=== PATIENT | female | born 1945 | race Asian ===

== ENCOUNTER 2019-07-06 13:29 | Emergency (ER) | payer OTHER ==
[~2019-07-06] VITALS: Ht 157.5 cm; Wt 58.1 kg
[2019-07-06 13:29] VITALS: BP 140/80
--- NOTE | 2019-07-06 13:29 | NUR ---
ED Nurse Note: PT BROUGHT IN BY RA [id number] FOR GROUND LEVEL FALL. LACERATION REPORTED ON THE FRONTAL RIGHT HEAD. PT DENIES LOC
[2019-07-06] MEDS ORDERED: Tetanus/Diptheria/Pertussis IM ONE (13:45)
[2019-07-06] MEDS ORDERED: oxyCODONE HCL/Acetaminophen 5/325mg ORAL ONE (13:45)
--- NOTE | 2019-07-06 13:52 | NUR ---
ED Nurse Note: pt went to ct
--- NOTE | 2019-07-06 14:10 | NUR ---
ED Nurse Note: pt back from ct
--- NOTE | 2019-07-06 14:21 | NUR ---
ED Nurse Note: went to x ray
--- NOTE | 2019-07-06 14:37 | NUR ---
ED Nurse Note: back from x ray
--- NOTE | 2019-07-06 14:55 | Diagnostic Imaging Report ---
Indications: Facial trauma secondary to fall Technique: Spiral acquisitions obtained through the facial bones. No IV contrast utilized. Multiplanar reconstructions were generated.Total dose length product 574 mGycm. CTDIvol(s) 25 mGy. Dose reduction achieved using automated exposure control Comparison: none Findings: A small focus of gas is seen in this soft tissues of the right supraorbital region on the highest cut, presumably indicating penetrating trauma to this area. No significant contusion, however. No fractures. No worrisome sinus opacification demonstrated. The nasal septum is midline. The sinuses are clear. The mastoids are clear. The mandible is intact. The dentition is intact. There are degenerative changes of the cervical spine. The optic globes are intact. Retroseptal orbits are unremarkable. The salivary glands are unremarkable. No cervical mass or adenopathy demonstrated. The upper aerodigestive tract is unremarkable. Impression: Soft tissue gas within the right supraorbital region seen only on the highest cuts, presumably indicating a laceration in this area. No acute bony trauma The CT scanner at [facility] is accredited by the [employer] and the scans are performed using protocols designed to limit radiation exposure to as low as reasonably achievable to attain images of sufficient resolution adequate for diagnostic evaluation.
[2019-07-06] MEDS ORDERED: Bacitracin Oint UD TOPIC ONE ×2 (15:02→15:15)
--- NOTE | 2019-07-06 15:08 | Diagnostic Imaging Report ---
Indications: Head trauma, pain, status post fall Technique: Spiral acquisitions obtained through the brain. Angled axial and coronal 5 x 5 mm slices were reconstructed. Total dose length product 1426 mGycm. CTDI vol(s) 62 mGy. Dose reduction achieved using automated exposure control Comparison: None. Findings: There is a small amount of soft tissue gas in the right supraorbital scalp with associated slight swelling. No underlying calvarial fracture. No acute intracranial hemorrhage or edema. No mass effect nor midline shift. Normal ortega-white differentiation. Normal size ventricles and extra axial CSF spaces. Focal dural calcification seen on the right tentorium. Impression: Evidence of right supraorbital scalp soft tissue injury with laceration Negative for acute intracranial bleed or mass effect The CT scanner at [facility] is accredited by the [employer] and the scans are performed using protocols designed to limit radiation exposure to as low as reasonably achievable to attain images of sufficient resolution adequate for diagnostic evaluation.
--- NOTE | 2019-07-06 15:33 | Emergency Room Report ---
History of Present Illness General Chief Complaint: Multiple Trauma/Fall Source: Patient, EMS Present Illness HPI 73-year-old female not on blood thinners presents with mechanical fall trip and fall patient was walking she was doing her cell phone and fell on the pavement hit her head, no LOC no nausea no vomiting no chest pain or shortness of breath no prior symptoms she endorses some head pain no aggravating leaving factors severity is moderate, intermittent, patient presents for evaluation symptoms occurred just prior to arrival Allergies: Coded Allergies: No Known Allergies (Unverified , 07/06/19) Patient History Past Medical History: see triage record Reviewed Nursing Documentation: PMH: Agreed; PSxH: Agreed Nursing Documentation-PMH Past Medical History: No History, Except For Hx Hypertension: Yes - KNEE INJURY Review of Systems All Other Systems: negative except mentioned in HPI Physical Exam Vital Signs Date Time Temp Pulse Resp B/P (MAP) Pulse Ox O2 Delivery O2 Flow Rate FiO2 07/06/19 13:21 98.8 88 16 142/84 (103) 98 07/06/19 13:29 Room Air Sp02 EP Interpretation: reviewed, normal General Appearance: well appearing, no apparent distress, alert Head: normocephalic, other - Stellate lesion right forehead 4 cm Eyes: bilateral eye PERRL, bilateral eye EOMI ENT: uvula midline, moist mucus membranes Neck: supple, thyroid normal, no bony tend, supple/symm/no masses Respiratory: lungs clear, no respiratory distress, no retraction, no accessory muscle use Cardiovascular #1: normal peripheral pulses, regular rate, rhythm, no edema, no gallop, no murmur Gastrointestinal: non tender, soft, no guarding, no rebound Musculoskeletal: normal inspection Neurologic: alert, oriented x3 Psychiatric: mood/affect normal Skin: no rash, warm/dry Procedures Laceration/Wound Repair Laceration/Wound Repair : Consent: Verbal Wound Location: face Wound's Depth, Shape: superficial Wound Length (cm): 4 Wound Explored: clean Irrigated w/ Saline (ccs): 250 Betadine Prep?: Yes Anesthesia: Lidocaine w/ Epi Volume Anesthetic (ccs): 10 Wound Repaired With: sutures Suture Size/Type: 5:0 Number of Sutures: 4 Patient Tolerated: Well Complications: None Medical Decision Making Diagnostic Impression: Primary Impression: Fall Qualified Codes: W19.XXXA - Unspecified fall, initial encounter Additional Impressions: Closed head injury Qualified Codes: S09.90XA - Unspecified injury of head, initial encounter Scalp laceration Qualified Codes: S01.01XA - Laceration without foreign body of scalp, initial encounter ER Course 73-year-old female presents with mechanical fall, with laceration to the right forehead, CT head and CT face are negative for acute fracture, no evidence of intracranial hemorrhage, patient was given a Tdap, laceration repair disposition home with return precautions CT/MRI/US Diagnostic Results CT/MRI/US Diagnostic Results : Impression Procedure: CT Facial Bones no Contrast Indications: Facial trauma secondary to fall Technique: Spiral acquisitions obtained through the facial bones. No IV contrast utilized. Multiplanar reconstructions were generated.Total dose length product 574 mGycm. CTDIvol(s) 25 mGy. Dose reduction achieved using automated exposure control Comparison: none Findings: A small focus of gas is seen in this soft tissues of the right supraorbital region on the highest cut, presumably indicating penetrating trauma to this area. No significant contusion, however. No fractures. No worrisome sinus opacification demonstrated. The nasal septum is midline. The sinuses are clear. The mastoids are clear. The mandible is intact. The dentition is intact. There are degenerative changes of the cervical spine. The optic globes are intact. Retroseptal orbits are unremarkable. The salivary glands are unremarkable. No cervical mass or adenopathy demonstrated. The upper aerodigestive tract is unremarkable. Impression: Soft tissue gas within the right supraorbital region seen only on the highest cuts, presumably indicating a laceration in this area. No acute bony trauma The CT scanner at [facility] is accredited by the [employer] and the scans are performed using protocols designed to limit radiation exposure to as low as reasonably achievable to attain images of sufficient resolution adequate for diagnostic evaluation. Dictated By: Idris Thrasher MD Electronically Signed By: Idris Thrasher MD Signed Date/Time 07/06/19 7837 CC: Tushar Stroud MD Procedure: CT Head no Contrast Indications: Head trauma, pain, status post fall Technique: Spiral acquisitions obtained through the brain. Angled axial and coronal 5 x 5 mm slices were reconstructed. Total dose length product 1426 mGycm. CTDI vol(s) 62 mGy. Dose reduction achieved using automated exposure control Comparison: None. Findings: There is a small amount of soft tissue gas in the right supraorbital scalp with associated slight swelling. No underlying calvarial fracture. No acute intracranial hemorrhage or edema. No mass effect nor midline shift. Normal ortega- white differentiation. Normal size ventricles and extra axial CSF spaces. Focal dural calcification seen on the right tentorium. Impression: Evidence of right supraorbital scalp soft tissue injury with laceration Negative for acute intracranial bleed or mass effect The CT scanner at [facility] is accredited by the [employer] and the scans are performed using protocols designed to limit radiation exposure to as low as reasonably achievable to attain images of sufficient resolution adequate for diagnostic evaluation. Dictated By: Idris Thrasher MD Electronically Signed By: Idris Thrasher MD Signed Date/Time 07/06/19 1503 CC: Tushar Stroud MD Last Vital Signs Date Time Temp Pulse Resp B/P (MAP) Pulse Ox O2 Delivery O2 Flow Rate FiO2 07/06/19 13:29 98.8 84 16 140/80 98 Room Air Disposition: HOME, SELF-CARE Condition: Stable Referrals: [facility] Patient Instructions: Head Injury, Adult, [id number], Laceration Care, Adult , [id number] Additional Instructions: The patient was provided with discharge instructions, notified to follow-up with a primary care doctor and or specialist in the next 24-48 hours, and to return to the ED if they have worsening of their symptoms. Please note that this report is being documented using DRAGON technology. This can lead to erroneous entry secondary to incorrect interpretation by the dictating instrument. STICHES TO BE REMOVED 07/16/2019 Tushar Stroud MD Jul 06, 2019 15:33
[2019-07-06 15:38] VITALS: BP 132/84
--- NOTE | 2019-07-06 15:40 | NUR ---
ER DISCHARGE NOTE: Patient is cleared to be discharged per ERMD, pt is aox4, on room air, with stable vital signs. pt was given dc and prescription instructions, pt was able to verbalize understanding, pt id band removed without complications. pt is able to ambulate with steady gait. pt took all belongings.
--- NOTE | 2019-07-06 16:53 | Diagnostic Imaging Report ---
Indication: Right hand pain Technique: 3 views right hand Comparison: none Findings: There is degenerative narrowing of the third fourth and fifth distal interphalangeal joints, to lesser extent the second distal interphalangeal joint and second through fifth proximal interphalangeal joints. Bones appear osteoporotic. No acute fractures. No dislocations. Impression: No acute bony trauma Degenerative changes, as described
== END 2019-07-06 15:40 | disposition home or self-care (01) ==
LOC: EDBD 13:29 → EMR 13:40
DX: S09.90XA Unspecified injury of head, initial encounter (principal); S01.01XA Laceration without foreign body of scalp, initial encounter; Z23 Encounter for immunization; W01.0XXA Fall on same level from slipping, tripping and stumbling without subsequent striking against object, initial encounter; Y92.9 Unspecified place or not applicable; I10 Essential (primary) hypertension
CPT/HCPCS: 70450; 70486; 90471; 90715; 99284

== ENCOUNTER 2019-12-26 17:17 | Emergency (ER) | payer OTHER ==
[~2019-12-26] VITALS: Ht 152.4 cm; Wt 58.1 kg
[2019-12-26 17:38] VITALS: BP 163/89
[2019-12-26] MEDS ORDERED: Methocarbamol 750mg tab ORAL ONE (17:45)
[2019-12-26] MEDS ORDERED: Ketorolac 30mg Inj IV ONE (17:45)
--- NOTE | 2019-12-26 17:55 | Emergency Room Report ---
History of Present Illness General Chief Complaint: Pain Source: Patient Present Illness HPI 74-year-old female with history of hypertension currently taking medication here complaining of 1 month of left-sided neck pain radiating to left shoulder and upper back and now is radiating to chest with some numbness in the chest and shoulder area. Denies any tingling. Denies any palpitation, headache and dizziness. Has not taken medication for symptom relief. Denies being on any blood thinners. Denies any fall or injury. Has full range of motion of the affected area. Denies fever and chills, cough and congestion, and other associate symptoms. Patient is neurovascularly intact. No slurred speech, unilateral generalized weakness noted. Allergies: Coded Allergies: No Known Allergies (Unverified , 07/06/19) COVID-19 Screening Contact w/high risk pt: No Experienced COVID-19 symptoms?: No COVID-19 Testing performed RECORDS MANAGER: No Patient History Past Medical History: see triage record Past Surgical History: none Pertinent Family History: none Last Menstrual Period: n/a Now: No Immunizations: UTD Reviewed Nursing Documentation: PMH: Agreed; PSxH: Agreed Nursing Documentation-PMH Past Medical History: No History, Except For Hx Hypertension: Yes - KNEE INJURY Review of Systems All Other Systems: negative except mentioned in HPI Physical Exam Vital Signs Date Time Temp Pulse Resp B/P (MAP) Pulse Ox O2 Delivery O2 Flow Rate FiO2 12/26/19 17:28 98.8 83 18 163/89 (113) 96 Room Air Sp02 EP Interpretation: reviewed, normal General Appearance: no apparent distress, alert, GCS 15, non-toxic Head: normocephalic, atraumatic Eyes: bilateral eye normal inspection, bilateral eye PERRL ENT: hearing grossly normal, normal pharynx, no angioedema, normal voice Neck: full range of motion, supple/symm/no masses Respiratory: chest non-tender, lungs clear, normal breath sounds, no rhonchi, no respiratory distress, no retraction, no accessory muscle use, no wheezing, speaking full sentences Cardiovascular #1: regular rate, rhythm, no edema, no murmur Cardiovascular #2: 2+ carotid (R), 2+ carotid (L), 2+ radial (R), 2+ radial (L) Gastrointestinal: normal bowel sounds, non tender, soft, non-distended, no guarding, no rebound Rectal: deferred Genitourinary: no CVA tenderness Musculoskeletal: back normal, no calf tenderness, pelvis stable, no lower extremity edema, non-tender, other - No impingement sign noted Neurologic: alert, motor strength/tone normal, oriented x3, sensory intact, responsive, speech normal Psychiatric: judgement/insight normal, memory normal, mood/affect normal, no suicidal/homicidal ideation Skin: no rash Lymphatic: no adenopathy Medical Decision Making PA Attestation All diagnoses and treatment plans were reviewed and discussed with my supervising physician Dr. Valverde Diagnostic Impression: Primary Impression: Cervical strain Additional Impressions: Arthritis UTI (urinary tract infection) ER Course 74-year-old female with history of hypertension currently taking medication here complaining of 1 month of left-sided neck pain radiating to left shoulder and upper back and now is radiating to chest with some numbness in the chest and shoulder area. Denies any tingling. Denies any palpitation, headache and dizziness. Has not taken medication for symptom relief. Denies being on any blood thinners. Denies any fall or injury. Has full range of motion of the affected area. Denies fever and chills, cough and congestion, and other associate symptoms. Patient is neurovascularly intact. No slurred speech, unilateral generalized weakness noted. Ddx considered but are not limited to: [place], Angina, COPD, GERD, cervical strain versus strain versus radiculopathy versus fracture versus arthritis versus tendinitis Vital signs: are WNL, pt. is afebrile H&PE are most consistent with arthritis, cervical strain, UTI ORDERS: EKG, chest x-ray, troponin, CBC, CMP, UA, C-spine CT no contrast, left shoulder x-ray,robaxin, motrin, lidocaine patch, keflex ED INTERVENTIONS: Toradol, robaxin DISCHARGE: At this time pt. is stable for d/c to home. Will provide printed patient care instructions, and any necessary prescriptions. Care plan and follow up instructions have been discussed with the patient prior to discharge. Take medication as directed, follow-up with your primary care provider for referral to resource recovery specialist, if worsening symptoms return to the emergency room EKG Diagnostic Results Rate: normal Rhythm: NSR ST Segments: no acute changes Other Impression No acute ST changes Chest X-Ray Diagnostic Results Chest X-Ray Diagnostic Results : Chest X-Ray Ordered: Yes Indication: Other EP Interpretation: Yes PA Xray: by supervising MD, and agrees with findings. Interpretation: no consolidation, no effusion, no pneumothorax, no acute cardiopulmonary disease Impression: No acute disease Electronically Signed by: Radha WAGGONER Scribe Text FINDINGS: Lungs:Unremarkable. No consolidation. Pleural space:Unremarkable. No pneumothorax. Heart:Unremarkable. No cardiomegaly. Mediastinum:Unremarkable. Bones/joints:No acute abnormality IMPRESSION: 1. No acute cardiopulmonarydisease. 2. If there is continued concern recommend frontal and lateral chest radiographs or CT Other X-Ray Diagnostic Results Other X-Ray Diagnostic Results : X-Ray ordered: Left shoulder # of Views/Limited Vs Complete: 3 View Indication: Pain EP Interpretation: Yes PA Xray: Interpretation reviewed, by supervising MD, and agrees with findings. Interpretation: no dislocation, no soft tissue swelling, no fractures Impression: No acute disease Electronically Signed by: Radha WAGGONER Scribe Text FINDINGS: Bones/joints: Mild glenohumeral osteoarthritis. Mild acromioclavicular arthrosis. No acute fracture. No dislocation. Soft tissues:Unremarkable. IMPRESSION: 1. No acute traumatic injury. 2. Mild glenohumeral osteoarthritis. 3. Mild acromioclavicular arthrosis. 4. Otherwise unremarkable study. CT/MRI/US Diagnostic Results CT/MRI/US Diagnostic Results : Imaging Test Ordered: CT C-spine no contrast Impression COMPARISON: No relevant prior studies available. FINDINGS: Vertebrae: Spine straightening, which could represent patient positioning or muscle spasm. No acute fracture. Discs/spinal canal/neural foramina: Mild degenerative spine findings. No spinal canal stenosis. Soft tissues:Unremarkable. IMPRESSION: 1. No acute traumatic injury. 2. Spine straightening, which could represent patient positioning or muscle spasm. 3. Mild degenerative spine findings. 4. Otherwise unremarkable. Last Vital Signs Date Time Temp Pulse Resp B/P (MAP) Pulse Ox O2 Delivery O2 Flow Rate FiO2 12/26/19 17:28 98.8 83 18 163/89 (113) 96 Room Air Disposition: HOME, SELF-CARE Condition: Stable Scripts Cephalexin* (KEFLEX*) 500 Mg Capsule 500 MG ORAL EVERY 12 HOURS for 7 Days, #14 CAP 0 Refills Prov: Radha Orantes 12/26/19 Ibuprofen* (MOTRIN*) 600 Mg Tablet 600 MG ORAL Q6H PRN for For Pain, #30 TAB 0 Refills Prov: Radha Orantes 12/26/19 Lidocaine Patch* (Lidoderm Patch*) 1 Each Adh..patch 1 PATCH TOPIC DAILY, #30 PATCH Patch(es) may remain in place for up to 12 hours in any 24-hour period. Prov: Radha Orantes 12/26/19 Methocarbamol* (ROBAXIN-500*) 500 Mg Tablet 500 MG ORAL TID PRN for For Pain, #15 TAB 0 Refills Prov: Radha Orantes 12/26/19 Referrals: NON PHYSICIAN (PCP) Patient Instructions: Arthritis, [id number], Cervical Radiculopathy, Urinary Tract Infection, [id number] Additional Instructions: Take medication as directed, follow-up with your primary care provider for referral to resource recovery specialist, if worsening symptoms return to the emergency room Radha Orantes Dec 26, 2019 17:55
--- NOTE | 2019-12-26 17:59 | Diagnostic Imaging Report ---
EXAM: XR Chest, 1 View CLINICAL HISTORY: PAIN TECHNIQUE: Frontal view of the chest. COMPARISON: No relevant prior studies available. FINDINGS: Lungs: Unremarkable. No consolidation. Pleural space: Unremarkable. No pneumothorax. Heart: Unremarkable. No cardiomegaly. Mediastinum: Unremarkable. Bones/joints: No acute abnormality IMPRESSION: 1. No acute cardiopulmonary disease. 2. If there is continued concern recommend frontal and lateral chest radiographs or CT.
--- NOTE | 2019-12-26 18:00 | Diagnostic Imaging Report ---
EXAM: XR Left Shoulder Complete, 2 or More Views CLINICAL HISTORY: TRAUMA TECHNIQUE: Two or more views of the left shoulder. COMPARISON: No relevant prior studies available. FINDINGS: Bones/joints: Mild glenohumeral osteoarthritis. Mild acromioclavicular arthrosis. No acute fracture. No dislocation. Soft tissues: Unremarkable. IMPRESSION: 1. No acute traumatic injury. 2. Mild glenohumeral osteoarthritis. 3. Mild acromioclavicular arthrosis. 4. Otherwise unremarkable study.
--- NOTE | 2019-12-26 18:17 | Diagnostic Imaging Report ---
EXAM: CT Cervical Spine Without Intravenous Contrast CLINICAL HISTORY: PAIN: 74-year-old female with history of hypertension currently taking medication here complaining of 1 month of left-sided neck pain radiating to left shoulder and upper back and now is radiating to chest with some numbness in the chest and shoulder area. Denies any tingling. Denies any palpitation, headache and dizziness. Has not taken medication for symptom relief. Denies being on any blood thinners. Denies any fall or injury. Has full range of motion of the affected area. Denies fever and chills, cough and congestion, and other associate symptoms. Patient is neurovascularly intact. No slurred speech, unilateral generalized weakness noted. TECHNIQUE: Axial computed tomography images of the cervical spine without intravenous contrast. CTDI is 3 mGy and DLP is 69 mGy-cm. One or more of the following dose reduction techniques were used: automated exposure control, adjustment of the mA and/or kV according to patient size, use of iterative reconstruction technique. Coronal and sagittal reformatted images were created and reviewed. Axial reformatted images were created and reviewed. COMPARISON: No relevant prior studies available. FINDINGS: Vertebrae: Spine straightening, which could represent patient positioning or muscle spasm. No acute fracture. Discs/spinal canal/neural foramina: Mild degenerative spine findings. No spinal canal stenosis. Soft tissues: Unremarkable. IMPRESSION: 1. No acute traumatic injury. 2. Spine straightening, which could represent patient positioning or muscle spasm. 3. Mild degenerative spine findings. 4. Otherwise unremarkable.
[2019-12-26 18:30] LABS: BASOPHILS % (AUTO) 1.4 % (0.0-2.0); EOSINOPHILS % (AUTO) 2.5 % (0.0-3.0); HEMATOCRIT 38.7 % (37.0-47.0); HEMOGLOBIN 12.9 G/DL (12.0-16.0); LYMPHOCYTES % (AUTO) 30.2 % (20.0-45.0); MEAN CORPUSCULAR VOLUME 95 FL (80-99); MONOCYTES % (AUTO) 8.3 % (1.0-10.0); NEUTROPHILS % (AUTO) 57.7 % (45.0-75.0); PLATELET COUNT 150 K/UL (150-450); RED BLOOD COUNT 4.07 M/UL (4.20-5.40)
[2019-12-26 18:33] LABS: ANION GAP 8 mmol/L (5-15); BLOOD UREA NITROGEN 17 mg/dL (7-18); CALCIUM 9.2 MG/DL (8.5-10.1); CARBON DIOXIDE 28 MMOL/L (21-32); CHLORIDE 104 MMOL/L (98-107); CREATININE 0.7 MG/DL (0.55-1.30); POTASSIUM 3.9 MMOL/L (3.5-5.1); SODIUM 140 MMOL/L (136-145)
[2019-12-26 18:36] LABS: INR 0.9 (0.9-1.1)
[2019-12-26 18:38] LABS: ALANINE AMINOTRANSFERASE 22 U/L (12-78); ALBUMIN 4.1 G/DL (3.4-5.0); ALBUMIN/GLOBULIN RATIO 1.1 (1.0-2.7); ALKALINE PHOSPHATASE 64 U/L (46-116); ASPARTATE AMINO TRANSFERASE 17 U/L (15-37); BILIRUBIN,TOTAL 0.3 MG/DL (0.2-1.0)
[2019-12-26] MEDS ORDERED: LIDODERM700 M1 TOPIC (19:07)
[2019-12-26] MEDS ORDERED: IBUPROFEN600 M1 ORAL (19:07)
[2019-12-26] MEDS ORDERED: ROBAXIN-500MG ORAL (19:07)
[2019-12-26 19:09] LABS: APPEARANCE,URINE SLIGHTLY CLOUDY; BILIRUBIN, URINE NEGATIVE (NEGATIVE); COLOR,URINE PALE YELLOW; GLUCOSE, URINE (UA) NEGATIVE (NEGATIVE); KETONES,URINE NEGATIVE (NEGATIVE); LEUKOCYTE ESTERASE ,URINE 3+ (NEGATIVE); NITRITE,URINE NEGATIVE (NEGATIVE); PH,URINE 8 (4.5-8.0); PROTEIN,URINE NEGATIVE (NEGATIVE); UROBILINOGEN,URINE NORMAL MG/DL (0.0-1.0)
[2019-12-26] MEDS ORDERED: CEPHALEXIN500 MG ORAL (19:16)
[2019-12-26 19:23] VITALS: BP 124/72
== END 2019-12-26 19:24 | disposition home or self-care (01) ==
LOC: EMR 17:47
DX: S16.1XXA Strain of muscle, fascia and tendon at neck level, initial encounter (principal); N39.0 Urinary tract infection, site not specified; I10 Essential (primary) hypertension; Z79.899 Other long term (current) drug therapy; R20.0 Anesthesia of skin; M19.012 Primary osteoarthritis, left shoulder
CPT/HCPCS: 36415; 71045; 72125; 73030; 80053; 81003; 84484; 85025; 85610; 85730; 87086; 93005; 96374; 99284; J1885